=== PATIENT | female | born 1995 | race African-American/Black ===

== ENCOUNTER 2020-06-12 05:10 | Inpatient (IN) | payer MEDICAID ==
[2020-06-09 14:03] LABS: APPEARANCE,URINE CLEAR; BILIRUBIN,URINE NEGATIVE (NEGATIVE); COLOR,URINE YELLOW; GLUCOSE, URINE NEGATIVE (NEGATIVE); KETONES,URINE NEGATIVE (NEGATIVE); LEUKOCYTE ESTERASE,URINE SMALL (NEGATIVE); NITRITE,URINE NEGATIVE (NEGATIVE); PROTEIN,URINE NEGATIVE (NEGATIVE); URINE SPECIFIC GRAVITY 1.008
[2020-06-09 14:18] LABS: ABSOLUTE BASOPHILS # (AUTO) 0.1 10^3/uL (0.0-0.2); ABSOLUTE LYMPHOCYTES (AUTO) 1.6 10^3/uL (0.5-4.7); ABSOLUTE MONOCYTES (AUTO) 0.5 10^3/uL (0.1-1.4); ABSOLUTE NEUT (AUTO) 5.3 10^3/uL (1.7-8.2); BASOPHILS % (AUTO) 1.2 % (0-2); EOSINOPHILS % (AUTO) 0.5 % (0-6); HEMATOCRIT 33.2 % (36.0-47.0); LYMPHOCYTES % (AUTO) 21.2 % (13-45); MEAN CORPUSCULAR HEMOGLOBIN 27.5 pg (27.0-33.4); MEAN CORPUSCULAR VOLUME 83 fl (80-97); MONOCYTES % (AUTO) 6.4 % (3-13); PLATELET COUNT 303 10^3/uL (150-450); RED BLOOD COUNT 3.98 10^6/uL (3.72-5.28); RED CELL DISTRIBUTION WIDTH 14.5 % (11.5-14.0); SEGMENTED NEUTROPHILS % (AUTO) 70.7 % (42-78); TOTAL CELLS COUNTED % (AUTO) 100 %; WHITE BLOOD COUNT 7.5 10^3/uL (4.0-10.5)
[2020-06-09 14:29] LABS: URINE AMPHETAMINES SCREEN NEGATIVE; URINE BARBITURATES SCREEN NEGATIVE; URINE BENZODIAZEPINES SCREEN NEGATIVE; URINE COCAINE SCREEN NEGATIVE; URINE MARIJUANA (THC) SCREEN NEGATIVE; URINE METHADONE SCREEN NEGATIVE; URINE PHENCYCLIDINE SCREEN NEGATIVE
[2020-06-10 11:25] LABS: CHLAM PCR NOT DETECTED (NOT DETECT)
[~2020-06-12 05:10] MED LIST: CEFAZOLIN SODIUM 3 GM in DEXTROSE 5%-WATER 100 ML IV PRN; LACTATED RINGERS 1000 ML IV PRN; LIDOCAINE 0.5% INJ-PF (5 MG/ML) 50 ML SDV SUBCUT PRN; RINGERS SOLUTION,LACTATED 1,500 ML IV PRN
[2020-06-12] MEDS: LACTATED RINGERS 1000 ML IV PRN ×2 (05:47→17:07)
[2020-06-12] MEDS ORDERED: CITRIC ACID/SODIUM CITRATE ORAL SOLN 15 ML UDCUP ONE (07:27)
[2020-06-12] MEDS ORDERED: CEFAZOLIN 1 GM/D5W RTU 1 GM/50 ML RTUPB IV ONE (07:27)
[2020-06-12] MEDS ORDERED: CEFAZOLIN 2 GM/D5W RTU 2 GM/50 ML RTUPB IV ONE (07:28)
[2020-06-12] MEDS ORDERED: OXYTOCIN/0.9 % SODIUM CHLORIDE 30 UNIT/500 ML RTUINJ ONE (07:29)
[2020-06-12] MEDS ORDERED: OXYTOCIN 10 UNIT/ML VIAL ONE (07:29)
[2020-06-12] MEDS ORDERED: FENTANYL CITRATE INJ/PF 100 MCG/2 ML AMPUL ONE (07:29)
[2020-06-12] MEDS ORDERED: PHENYLEPHRINE HCL INJ/PF 10 MG/1 ML SDV ONE (07:29)
[2020-06-12] MEDS ORDERED: KETOROLAC TROMETHAMINE INJ/PF 30 MG/1 ML SDV ONE (07:29)
[2020-06-12] MEDS ORDERED: ONDANSETRON HCL INJ/PF 4 MG/2 ML SDV ONE (07:30)
[2020-06-12] MEDS ORDERED: ACETAMINOPHEN 1,000 MG/100 ML RTUPB IV ONE (07:30)
[2020-06-12] MEDS ORDERED: GLYCOPYRROLATE INJ 0.4 MG/2 ML VIAL ONE (07:38)
[2020-06-12] MEDS ORDERED: HYDROMORPHONE HCL INJ/PF 2 MG/ML AMPULE IV PRN (09:13)
[2020-06-12] MEDS ORDERED: OXYTOCIN/0.9 % SODIUM CHLORIDE 30 UNIT/500 ML RTUINJ IV PRN (09:13)
[2020-06-12] MEDS ORDERED: PROMETHAZINE HCL INJ 25 MG/1 ML VIAL IV PRN (09:13)
[2020-06-12] MEDS ORDERED: RINGERS SOLUTION,LACTATED 1,000 ML IV PRN (09:13)
[2020-06-12] MEDS ORDERED: SIMETHICONE 80 MG TAB.CHEW PO PRN (09:13)
[2020-06-12] MEDS ORDERED: DIPH/PERTUSS(ACELL)/TETANUS VAC/PF 0.5 ML SYR (>=10YO) IM PRN (09:13)
[2020-06-12] MEDS ORDERED: ACETAMINOPHEN 1,000 MG/100 ML RTUPB IV PRN (09:13)
[2020-06-12] MEDS ORDERED: MEASLES,MUMPS&RUBELLA VACC/PF 0.5 ML VIAL SUBCUT PRN (09:13)
[2020-06-12] MEDS ORDERED: ACETAMINOPHEN 325 MG TABLET PO PRN (09:13)
[2020-06-12] MEDS ORDERED: OXYCODONE-ACETAMINOPHEN 5-325 MG TABLET PO PRN (09:13)
--- NOTE | 2020-06-12 09:28 | Operative Report ---
Operative Report DATE OF SURGERY: 06/12/20 PREOPERATIVE DIAGNOSIS: Intrauterine with Di/Di twins. Breech presen tation of Twin A POSTOPERATIVE DIAGNOSIS: same as above OPERATION: Primary section SURGEON: CATHY CROOKS ANESTHESIA: Spinal TISSUE REMOVED OR ALTERED: Placenta x2 COMPLICATIONS: None ESTIMATED BLOOD LOSS: 750 cc INTRAOPERATIVE FINDINGS: IV fluids: per anesthesia record. Urinary output: 250 cc clear yellow urine. Findings: Normal-appearing uterus, bilateral ovaries and fallopian tubes. Twin a was emmett breech and twin b vertex. Placentas grossly normal. Position: To recovery room in stable condition. Description of procedure: The patient was taken to the operating room and spinal anesthesia was administered and found to be adequate. She was then placed on the OR table in the supine position with a slight leftward tilt. Patient was prepped and draped in usual sterile fashion. Ancef 2 gms was given IV prior to the procedure for infection prophylaxis. Timeout was taken. A Pfannenstiel skin incision was then made approximately 3 cm above the pubic symphysis and carried down to level the rectus fascia. The rectus fascia was then nicked in the midline with a scalpel and the fascial incision was extended laterally with use of curved Blackman scissors. The rectus fascia was then grasped with 2 Kocker clamps elevated and the underlying rectus muscle was dissected off both bluntly and sharply. Any bleeding controlled with cautery. The rectus muscles were then split in the midline and the peritoneum was entered. The peritoneal incision was then extended by manually stretching the peritoneum. The bladder blade was positioned. Using pick ups and metsenbaum scissors a bladder flap was created and bladder digitly moved out of harms way. The bladder was then noted to be out of harm's way. A scalpel was then used in the lower uterine for the hysterotomy, slowly until amniotomy was obtained a scant amount of fluid was noted. The uterine incision was then manually stretched. The infant was noted to be in emmett breech presentation. The hips were brought to the hysterotomy incision and delivered. Back delivered to the level of the scapula. The legs were then flexed at the knee and reduced. THe chest was turned side to side allowing delivery of each arm. The chest was elevated toward maternal head and the head then delivered with minmal difficulty. The cord was cut clamped and the infant was handed off to the nurse awaiting. A second amniotic sac was noted and r upture, clear flluid. Twin B was in vertex presentation. The head delivered easily and the shoulders and rest of the body followed easily. was vigorous. Cord doubly clamped and cut. handed off to nursery staff awating. The placentas were manually delivered. Using a lap gauze the uterus was cleared of all clots and debris. The uterus was then exteriorized and a bladder blade was repositioned. The uterine incision was then closed with 0 Chromic suture in a running locked fashion. A second layer of the same suture was used in a running locked imbricated fashion. The uterine incision was inspected and noted to be hemostatic. The posterior aspect of the uterus was then inspected and anatomy was seen as above. Warm saline was used to remove any clot or debris. The uterus remained firm and was returned to its normal anatomic position within the abdominal cavity. Warm saline irrigation was used to clear all clots and debris from the abdomen. The uterine incision was inspected once more and noted to remain hemostatic. The bladder blade was removed and the peritoneum was closed with 2-0 chromic in a running fashion. The rectus muscles were then reapproximated and the rectus fascia was closed with a #0 looped PDS in a running fashion. The subcutaneous tissue was then inspected and any bleeding was controlled with Bovie electrocautery. The subcutaneous tissue was then closed with 2-0 Plain Gut suture in a running fashion. The skin was then closed with 4-0 Monocryl in a running subcuticular fashion. The skin incision was then clean dried and Dermabond was applied over the skin incision. All instrument sponge and needle counts were correct x3 for the procedure the patient tolerated the procedure well. She will proceed to recovery room in stable condition
--- NOTE | 2020-06-12 09:41 | PDOC DELIVERY SUMMARY ---
Delivery Summary - Maternal Hx : I Hx # Term Pregnancies: 1 LUISITO: 06/12/20 Risk Factors: Other - Di/di twin gestation - Delivery Presentation: Vertex, Breech Heart Rate Monitoring: Done Pre-Operatively Pattern Other: Cat 1 tracings pre-op Support Person Present: Yes Location: OR : Scheduled Placenta: Within Normal Limits Number of Vessels (Cord): 3 Nuchal Cord: No - Medications Type of Anesthesia:: Spinal - Delivery Personnel MD: CATHY CROOKS
[2020-06-12] MEDS: DOCUSATE SODIUM 100 MG CAPSULE PO SCH ×2 (13:22→17:07)
[2020-06-12] MEDS: PRENATAL VITAMIN W DHA CAPSULE PO SCH (13:23)
[2020-06-12] MEDS: IBUPROFEN 800 MG TABLET PO SCH ×2 (17:05→23:08)
[2020-06-12] MEDS: KETOROLAC TROMETHAMINE INJ/PF 30 MG/1 ML SDV IV SCH ×2 (17:06→23:03)
[2020-06-13] MEDS: KETOROLAC TROMETHAMINE INJ/PF 30 MG/1 ML SDV IV SCH (01:21)
[2020-06-13] MEDS: OXYCODONE-ACETAMINOPHEN 5-325 MG TABLET PO PRN ×2 (05:18→17:49)
[2020-06-13] MEDS: IBUPROFEN 800 MG TABLET PO SCH ×3 (06:22→22:04)
[2020-06-13 08:21] LABS: HEMATOCRIT 29.5 % (36.0-47.0); HEMOGLOBIN 9.6 g/dL (12.0-15.5); MEAN CORPUSCULAR HEMOGLOBIN 27.5 pg (27.0-33.4); MEAN CORPUSCULAR HGB CONC 32.7 g/dL (32.0-36.0); MEAN CORPUSCULAR VOLUME 84 fl (80-97); PLATELET COUNT 258 10^3/uL (150-450); RED BLOOD COUNT 3.51 10^6/uL (3.72-5.28); RED CELL DISTRIBUTION WIDTH 14.5 % (11.5-14.0); WHITE BLOOD COUNT 10.5 10^3/uL (4.0-10.5)
[2020-06-13] MEDS ORDERED: KETOROLAC TROMETHAMINE INJ/PF 30 MG/1 ML SDV IV SCH (10:00)
[2020-06-13] MEDS: PRENATAL VITAMIN W DHA CAPSULE PO SCH (10:07)
[2020-06-13] MEDS: DOCUSATE SODIUM 100 MG CAPSULE PO SCH ×2 (10:07→17:50)
--- NOTE | 2020-06-13 10:35 | PDOC PROGRESS REPORT ---
Subjective-OB Progress Note for:: 06/13/20 Subjective: reports bleeding slowing, pain controlled with current meds. denies needs Physical Exam (OB) Vital Signs: Temp Pulse Resp BP Pulse Ox 98.0 F 60 16 103/51 L 99 06/13/20 07:09 06/13/20 07:09 06/13/20 07:09 06/13/20 07:09 06/13/20 07:09 Intake & Output 06/12/20 06/13/20 06/14/20 06:59 06:59 06:59 Intake Total 2900 Output Total 1902 Balance 998 - Dressing Removed: Yes - Removed previously Incision: Open, Well Approximated Closure Type: Surgical Glue - Maternal Morbidity 59. Maternal Morbidity (serious complications experinced by the mother associated with labor and delivery: None of the above - Abdomen Description: Tender, Soft Hernia Present: No Fundal Description: Midline Fundal Height: u/u - u/2 - Abdominal Distension: No distension - reports + passing gas - Extremities Lower extremities: Farheen's sign - neg Calf: Normal, Nontender Objective-Diagnostic Laboratory: 06/13/20 06:55 06/13/20 06:55 WBC 10.5 RBC 3.51 L Hgb 9.6 L Hct 29.5 L MCV 84 MCH 27.5 MCHC 32.7 RDW 14.5 H Plt Count 258 Assessment and Plan(PN) - Assessment and Plan (1) S/P repeat low transverse Is this a current diagnosis for this admission?: Yes (2) Twin Is this a current diagnosis for this admission?: Yes - Time Spent with Patient Time with patient: Less than 15 minutes Medications reviewed and adjusted accordingly: Yes - Disposition Anticipated Discharge Disposition: Home, Self Care Anticipated Discharge Timeframe: within 48 hours
[2020-06-14] MEDS: IBUPROFEN 800 MG TABLET PO SCH (05:26)
[2020-06-14] MEDS: PRENATAL VITAMIN W DHA CAPSULE PO SCH (09:36)
[2020-06-14] MEDS: DOCUSATE SODIUM 100 MG CAPSULE PO SCH (09:36)
--- NOTE | 2020-06-14 11:07 | PDOC DISCHARGE SUMMARY ---
Impression - Admit/DC Date/PCP Admission Date/Primary Care Provider: 06/12/20 05:10 NITA SHIPLEY MD Discharge Date: 06/14/20 - Discharge Diagnosis (1) S/P repeat low transverse Is this a current diagnosis for this admission?: Yes (2) Twin Is this a current diagnosis for this admission?: Yes - Additional Information Discharge Diet: Regular Discharge Activity: Balance Activity w/Rest, No Lifting Over 10 Pounds, No Lifting/Push/Pulling, Pelvic Rest, No tub bath Referrals: NITA SHIPLEY MD [Primary Care Provider] - Prescriptions: Ibuprofen [Motrin 800 mg Tablet] 800 mg PO Q8HP PRN #90 tablet PRN Reason: Oxycodone HCl/Acetaminophen [Percocet 5-325 mg Tablet] 1 tab PO Q4HP PRN #15 tablet PRN Reason: Oxycodone HCl/Acetaminophen [Percocet 5-325 mg Tablet] 1 tab PO ASDIR PRN #15 tab PRN Reason: Home Medications: Vit,Calc78/Iron/Folic [Prenatabs FA Tablet] 1 each PO DAILY 06/09/20 Ibuprofen [Motrin 800 mg Tablet] 800 mg PO Q8HP PRN #90 tablet 06/14/20 Oxycodone HCl/Acetaminophen [Percocet 5-325 mg Tablet] 1 tab PO ASDIR PRN #15 tab 06/14/20 Oxycodone HCl/Acetaminophen [Percocet 5-325 mg Tablet] 1 tab PO Q4HP PRN #15 tablet 06/14/20 Hospital Course 59. Maternal Morbidity (serious complications experinced by the mother associated with labor and delivery: None of the above Results Laboratory Results: WBC 10.5 10^3/uL (4.0-10.5) 06/13/20 06:55 RBC 3.51 10^6/uL (3.72-5.28) L 06/13/20 06:55 Hgb 9.6 g/dL (12.0-15.5) L 06/13/20 06:55 Hct 29.5 % (36.0-47.0) L 06/13/20 06:55 MCV 84 fl (80-97) 06/13/20 06:55 MCH 27.5 pg (27.0-33.4) 06/13/20 06:55 MCHC 32.7 g/dL (32.0-36.0) 06/13/20 06:55 RDW 14.5 % (11.5-14.0) H 06/13/20 06:55 Plt Count 258 10^3/uL (150-450) 06/13/20 06:55 Lymph % (Auto) 21.2 % (13-45) 06/09/20 13:26 [place] % (Auto) 6.4 % (3-13) 06/09/20 13:26 Eos % (Auto) 0.5 % (0-6) 06/09/20 13:26 Baso % (Auto) 1.2 % (0-2) 06/09/20 13:26 Absolute Neuts (auto) 5.3 10^3/uL (1.7-8.2) 06/09/20 13:26 Absolute Lymphs (auto) 1.6 10^3/uL (0.5-4.7) 06/09/20 13:26 Absolute Monos (auto) 0.5 10^3/uL (0.1-1.4) 06/09/20 13:26 Absolute Eos (auto) 0.0 10^3/uL (0.0-0.6) 06/09/20 13:26 Absolute Basos (auto) 0.1 10^3/uL (0.0-0.2) 06/09/20 13:26 Seg Neutrophils % 70.7 % (42-78) 06/09/20 13:26 Urine Color YELLOW 06/09/20 12:48 Urine Appearance CLEAR 06/09/20 12:48 Urine pH 7.0 (5.0-9.0) 06/09/20 12:48 Ur Specific [place] 1.008 06/09/20 12:48 Urine Protein NEGATIVE mg/dL (NEGATIVE) 06/09/20 12:48 Urine Glucose (UA) NEGATIVE mg/dL (NEGATIVE) 06/09/20 12:48 Urine Ketones NEGATIVE mg/dL (NEGATIVE) 06/09/20 12:48 Urine Blood NEGATIVE (NEGATIVE) 06/09/20 12:48 Urine Nitrite NEGATIVE (NEGATIVE) 06/09/20 12:48 Urine Bilirubin NEGATIVE (NEGATIVE) 06/09/20 12:48 Urine Urobilinogen 2.0 mg/dL (<2.0) H 06/09/20 12:48 Ur Leukocyte Esterase SMALL (NEGATIVE) H 06/09/20 12:48 Urine WBC (Auto) 1 /HPF 06/09/20 12:48 Urine RBC (Auto) 1 /HPF 06/09/20 12:48 Urine Bacteria (Auto) TRACE /HPF 06/09/20 12:48 Squamous Epi Cells Auto 3 /HPF 06/09/20 12:48 Urine Mucus (Auto) RARE /LPF 06/09/20 12:48 Urine Ascorbic Acid NEGATIVE (NEGATIVE) 06/09/20 12:48 Urine Opiates Screen NEGATIVE 06/09/20 11:22 Urine Methadone Screen NEGATIVE 06/09/20 11:22 Ur Barbiturates Screen NEGATIVE 06/09/20 11:22 Ur Phencyclidine Scrn NEGATIVE 06/09/20 11:22 Ur Amphetamines Screen NEGATIVE 06/09/20 11:22 U Benzodiazepines Scrn NEGATIVE 06/09/20 11:22 Urine Cocaine Screen NEGATIVE 06/09/20 11:22 U Marijuana (THC) Screen NEGATIVE 06/09/20 11:22 Chlamydia DNA (PCR) NOT DETECTED (NOT DETECT) 06/10/20 08:40 COVID-19 Source See comment 06/09/20 13:15 COVID-19 (AZAR) Not Detected (Not Detect) 06/09/20 13:15 N.gonorrhoeae DNA (PCR) NOT DETECTED (NOT DETECT) 06/10/20 08:40 Blood Type O POSITIVE 06/10/20 08:50 Antibody Screen NEGATIVE 06/10/20 08:50 Plan Plan of Treatment: follow up in one week at [facility] for incision check
[2020-06-14 11:49] VITALS: BP 116/65
== END 2020-06-14 13:03 | disposition home or self-care (01) | DRG 788 ==
LOC: 2S 05:10
PROVIDERS: ADMIT Obstetrics & Gynecology; ATTEND Obstetrics & Gynecology
PROC: 10D00Z1 Extraction of Products of Conception, Low, Open Approach (ICD-10-PCS; principal; 2020-06-12)
DX: O30.043 Twin pregnancy, dichorionic/diamniotic, third trimester (principal); O32.1XX1 Maternal care for breech presentation, fetus 1; Z37.2 Twins, both liveborn; Z79.899 Other long term (current) drug therapy; Z3A.00 Weeks of gestation of pregnancy not specified
CPT/HCPCS: 1961; 36415; 59025; 80307; 81001; 85025; 85027; 86850; 86900; 86901; 87491; 87591; 87635; 94799; C9803; J0131; J0690; J1885; J2370; J2405; J2590; J3010; J3490; J7060; J7120